=== PATIENT | male | born 1960 | race Caucasian/White ===

== ENCOUNTER → 2019-06-06 | Outpatient (CLI) | payer BC ==
--- NOTE | 2019-06-06 11:06 | Diagnostic Imaging Report ---
PROCEDURE: US Scrotum. TECHNIQUE: Multiple real-time grayscale images were obtained over the scrotum in various projections bilaterally. INDICATION: Left epididymal cysts. FINDINGS: The right testicle measures 4.7 x 1.9 x 2.6 cm and the left testicle measures 4.6 x 2.1 x 2.9 cm. Both testes demonstrate homogeneous echotexture. No discrete testicular mass is detected. There is blood flow to both testes. There is a tiny approximately 2 mm right epididymal head cyst. Left epididymis contains several cysts in the head, largest approximately 16 mm in diameter. No hydrocele or varicocele is detected. IMPRESSION: 1. No evidence of testicular mass or vascular compromise. 2. Bilateral epididymal cysts, largest on the left, as described. Dictated by: Dictated on workstation # [id number]
== END ==
LOC: RAD 09:05
PROVIDERS: ATTEND Urology
DX: N50.3 Cyst of epididymis (principal)
CPT/HCPCS: 76870

== ENCOUNTER → 2023-04-12 | Outpatient (CLI) | payer BC ==
[2023-04-12 08:05] LABS: CALCIUM 8.7 MG/DL (8.5-10.1); CREATININE SERUM 1.04 MG/DL (0.60-1.30); POTASSIUM 4.1 MMOL/L (3.6-5.0)
== END ==
LOC: LAB 07:18
DX: N40.1 Benign prostatic hyperplasia with lower urinary tract symptoms (principal)
CPT/HCPCS: 36415; 80048